=== PATIENT | male | born 1970 | race Caucasian/White ===

== ENCOUNTER 2016-12-02 22:19 | Emergency (ER) | payer MEDICAID, OTHER ==
[~2016-12-02] VITALS: Ht 182.9 cm; Wt 85.0 kg
[~2016-12-02 22:19] MED LIST: CEPH500C PO
[2016-12-02 22:22] VITALS: Ht 182.9 cm; Wt 85.0 kg
--- NOTE | 2016-12-02 22:24 | ERA ---
ER Documentation Chief Complaint Date/Time DATE: 12/02/16 TIME: 22:24 Chief Complaint Left hip pain HPI The patient is a 46-year-old male, presenting to the ER because of left hip pain after he fell about 30 minutes on arrival while he was pushing the cart. He denies any head injury, neck pain, chest pain, abdominal pain, vomiting. The left hip pain is worse with movement. He smokes, drinks, denies illicit drug Past medical history: Cirrhosis Past surgical history: None ROS All systems reviewed and are negative except as per history of present illness. Medications Home Meds Active Scripts Ibuprofen* (Motrin*) 600 Mg Tab, 600 MG PO Q6H Y for PAIN AND OR ELEVATED TEMP, #20 TAB Prov:ELIAS CAMPBELL MD 12/02/16 Cephalexin* (Cephalexin*) 500 Mg Capsule, 500 MG PO TID, #10 CAP Prov:ARTUROMESERET DO 01/31/15 Allergies Allergies: Coded Allergies: Penicillins (Verified Allergy, Severe, 01/31/15) penicillin (Verified Allergy, Unknown, 02/07/15) PMhx/Soc Hx Miscellaneous Medical Probl: Yes ( ascites) Hx Alcohol Use: Yes (yesterday) Hx Substance Use: Yes (IV DRUG USE) Hx Tobacco Use: No Physical Exam Vitals Vital Signs Date Time Temp Pulse Resp B/P Pulse Ox O2 Delivery O2 Flow Rate FiO2 12/02/16 22:22 99.1 105 20 139/91 96 Physical Exam Const: No acute distress. Unkempt Head: Atraumatic. Eyes: Normal Conjunctiva. ENT: Normal External Ears, Nose and Mouth. Neck: Full range of motion. No meningismus. Resp: Clear to auscultation bilaterally. Cardio: Regular rate and rhythm. Abd: Soft, non distended, normal bowel sounds, non tender. Skin: No petechiae or rashes. Back: No midline or flank tenderness. Ext: No cyanosis, or edema. Mild to moderate left hip tenderness, no laceration, both legs equal in length Neur: Awake and alert. No focal deficit Psych: Normal Mood and Affect. Results 24 hrs Current Medications Medications (Trade) Dose Ordered Sig/Amy Route PRN Reason Start Time Stop Time Status Last Admin Dose Admin Ibuprofen (Motrin) 600 mg ONCE ONCE PO 12/02/16 23:30 12/02/16 23:31 Procedures/MDM [facility] [id number] [address] Radiology Main Line: [phone] DIAGNOSTIC IMAGING REPORT Patient: KHARI CAMPOS : 1970 Age: 46 Sex: M MR #: [id number] DOS: 12/02/16 2230 Ordering MD: ELIAS CAMPBELL MD Location: E/R Room/Bed: PROCEDURE: XR Hip. CLINICAL INDICATION: Left hip pain. TECHNIQUE: AP and frog lateral views of the left hip were performed. COMPARISON: None. FINDINGS: There is normal mineralization and alignment. No fracture or osseous lesion is identified. There are normal joints without evidence of arthritis or effusion. The soft tissues are unremarkable. IMPRESSION: Unremarkable left hip. RPTAT: UU Physician Ez Date Time Electronically viewed and signed by Physician Ez on 12/02/2016 23:02 RS/ CC: ELIAS CAMPBELL MD MEDICAL MAKING DECISION: The patient is a 46-year-old male, presenting with acute left hip contusion. He was treated with Motrin for pain with good response. The differential diagnoses considered include but are not limited to fracture, contusion, sprain, internal derangement Departure Diagnosis: Primary Impression: Left hip pain Condition: Good Comments He was discharged with Motrin I discussed the findings with the patient. I advised the patient to follow-up with the primary physician in about 2-3 days, sooner if needed and return if any concern. ELIAS CAMPBELL MD Dec 02, 2016 22:24
--- NOTE | 2016-12-02 23:02 | RADRPT ---
PROCEDURE: XR Hip. CLINICAL INDICATION: Left hip pain. TECHNIQUE: AP and frog lateral views of the left hip were performed. COMPARISON: None. FINDINGS: There is normal mineralization and alignment. No fracture or osseous lesion is identified. There are normal joints without evidence of arthritis or effusion. The soft tissues are unremarkable. IMPRESSION: Unremarkable left hip. RPTAT: UU Physician Ez Date Time Electronically viewed and signed by Physician Ez on 12/02/2016 23:02 RS/
[2016-12-02] MEDS ORDERED: IBUP-1542 PO (23:17)
[2016-12-02] MEDS ORDERED: IBUPROFEN 600 MG TAB PO ONE (23:30)
[2016-12-03 05:13] VITALS: BP 128/77; PULSE 84; RESP 20; TEMP 99.2
== END 2016-12-03 05:17 | disposition home or self-care (01) ==
LOC: E/R 22:19
DX: M25.552 Pain in left hip (principal)
CPT/HCPCS: 73510; Z7502; Z7610

== ENCOUNTER 2016-12-10 18:08 | Emergency (ER) | payer OTHER ==
[~2016-12-10] VITALS: Wt 81.0 kg
[~2016-12-10 18:08] MED LIST changes: -CEPH500C PO; +IBUP-1542 PO
[2016-12-10] MEDS ORDERED: ONDANSETRON (ODT) 4 MG TAB ODT STA (18:50)
[2016-12-10] MEDS ORDERED: morphine 10 MG INJ IM ONE (19:00)
--- NOTE | 2016-12-10 19:04 | ERD ---
ER Documentation Chief Complaint Date/Time DATE: 12/10/16 TIME: 19:01 Chief Complaint LEFT LEG PAIN X 1 WEEK HPI This is a 46-year-old male who presents to the emergency department brought in by EMS complaining of left leg pain for the past 1 week. The patient indicates he is homeless and has a history of alcohol abuse. While intoxicated 1 week ago he tripped and fell over a curb and landed on his left hip and left knee. [facility] and told there was no fractures. He indicates however he still complained of the significant amount of pain that is most prominent over the left thigh and left calf. The pain is exacerbated with movement. He has had no fevers or shaking or chills. The pain is 6 out of 10 intensity. He did not take any analgesic medication prior to arrival. He denies any rashes. ROS All systems reviewed and are negative except as per history of present illness. Medications Home Meds Active Scripts Ibuprofen* (Motrin*) 600 Mg Tab, 600 MG PO Q6H Y for PAIN AND OR ELEVATED TEMP, #20 TAB Prov:ELIAS CAMPBELL MD 12/02/16 Allergies Allergies: Coded Allergies: Penicillins (Verified Allergy, Severe, 01/31/15) penicillin (Verified Allergy, Unknown, 02/07/15) PMhx/Soc Hx Miscellaneous Medical Probl: Yes ( ascites) Hx Alcohol Use: Yes (yesterday) Hx Substance Use: Yes (IV DRUG USE) Hx Tobacco Use: Yes Physical Exam Vitals Vital Signs Date Time Temp Pulse Resp B/P Pulse Ox O2 Delivery O2 Flow Rate FiO2 12/10/16 23:00 78 17 135/78 100 Room Air 12/10/16 18:13 98.0 112 18 132/81 99 Physical Exam Constitutional:Well-developed. Disheveled HEENT:Normocephalic. Atraumatic.Pupils were equal round reactive to light. Moist mucous membranes.No tonsillar exudates. Neck: No nuchal rigidity. No lymphadenopathy. No posterior cervical spine tenderness or step-offs. Respiratory: Not using accessory muscles of respiration.Lungs were clear to auscultation bilaterally. No rhonchi. No rales. No wheezing. Cardiovascular: Regular rate regular rhythm.No murmurs. No rubs were appreciated.S1, S2 normal. Distal pulses are palpable 2+ bilaterally. GI: Abdomen was soft. Nontender. Non Distended. No pulsatile abdominal masses or bruits. No rebound. No guarding. Bowel sounds were present and normal. No tense ascites or positive fluid thrill Muscle skeletal: Lower extremities are equal length and symmetrical with no internal/external rotation. No tenderness over the left anterior superior right anterior superior iliac spine. No laxity on anterior posterior lateral compression of the hip. Tenderness over the left patella. Tenderness over the midshaft of the left femur. Left calf tenderness with no asymmetrical swelling. Homans sign negative bilaterally. Pain not out of proportion to physical exam. No tenderness over the left patella. Patient was able to ambulate more than 4 steps in the emergency department. No tenderness over the proximal left fibular head. Skin: No petechia, no purpura. No lesions on the palms or the soles of the feet. No maculopapular rash. Abrasion over the left knee. No subcutaneous emphysema. NEURO: Patient was alert, awake, orientated x3.No facial droop. Gait observed and normal with no ataxia.Speech had regular rate and rhythm. No focal neurological deficits. Results 24 hrs Current Medications Medications (Trade) Dose Ordered Sig/Amy Route PRN Reason Start Time Stop Time Status Last Admin Dose Admin Morphine Sulfate (morphine) 4 mg ONCE ONCE IM 12/10/16 19:00 12/10/16 19:01 DC 12/10/16 19:02 Ondansetron HCl (Zofran Odt) 4 mg ONCE STAT ODT 12/10/16 18:50 12/10/16 18:51 DC 12/10/16 19:02 Procedures/MDM This patient presented to the emergency department with pain of his left lower extremity after a fall roughly 1 week ago. I did repeat radiographic imaging of the patient's femur which showed no acute fractures or dislocations. Utilizing the [place] ankle and knee rules I did not feel is necessary to obtain any radiographic imaging of the patient's knee as there is no signs of a fracture or dislocation. The patient was given intramuscular morphine and Zofran for analgesic control. Given that he also had left calf tenderness I did obtain a venous duplex ultrasound which showed no evidence of a DVT. The patient had no physical exam findings to suggest necrotizing fasciitis. The patient was discharged home in fair condition. They were instructed to return to the emergency department at any time if there was any worsening of their condition. The patient stated they would follow up with their PCP in the next 24-48 hours to initiate a suitable medication regimen under the care of their PCP as well as to allow their PCP to monitor any drug reactions. The patient was discharged home with prescriptions after they gave informed consent to the new medication. They were also fully informed by myself on the adverse effects and adverse drug interactions in order to provide adequate safeguards to prevent possible adverse reactions to medications. Departure Diagnosis: Primary Impression: Pain of left leg Condition: GUILLE Chand Dec 10, 2016 19:03
--- NOTE | 2016-12-10 19:36 | RADRPT ---
PROCEDURE: XR Femur. CLINICAL INDICATION: Pain. TECHNIQUE: AP and lateral views of the left femur. COMPARISON: None available. FINDINGS: No fracture or dislocation is identified. The joint spaces are preserved. There is no significant soft tissue swelling. IMPRESSION: 1. No fracture or dislocation of the left femur. RPTAT: HTAR .Pedrito Elizabeth MD, MD Date Time Electronically viewed and signed by .Pedrito Elizabeth MD, on 12/10/2016 19:35 .R/
--- NOTE | 2016-12-10 20:41 | RADRPT ---
PROCEDURE: US left lower extremity veins. CLINICAL INDICATION: Left leg pain and swelling. TECHNIQUE: Multiple longitudinal and transverse images of the left lower extremity veins were obta ined with fitzgerald scale and color Doppler imaging. The common femoral vein, femoral vein, and popliteal vein were evaluated. 2D grayscale measurements with compression sonography, pulsed Doppler, color D oppler, and pulsed Doppler with augmentation. COMPARISON: No prior studies are available for comparison. FINDINGS: The left common femoral, femoral and popliteal veins are normally compressible throughout. Color fl ow demonstrates normal filling of the vessels. Normal waveforms are visualized and there is normal response to augmentation. IMPRESSION: 1. No evidence of deep vein thrombosis involving the left lower extremity. RPTAT: QQ .Raymond James MD, MD Date Time Electronically viewed and signed by .Raymond James MD, on 12/10/2016 20:40 .R/
[2016-12-10 23:00] VITALS: BP 135/78; PULSE 78; RESP 17
== END 2016-12-10 23:01 | disposition home or self-care (01) ==
LOC: E/R 18:08
DX: M79.605 Pain in left leg (principal); Z87.891 Personal history of nicotine dependence
CPT/HCPCS: 73550; 93971; 96372; J2270; Z7502; Z7610